=== PATIENT | female | born 1985 | race Caucasian/White ===

== ENCOUNTER → 2016-10-28 | Outpatient (CLI) | payer BC | END | disposition home or self-care (01) | LOC: LABWHC1 17:00 | PROVIDERS: ATTEND Obstetrics & Gynecology | DX: Z34.90 Encounter for supervision of normal pregnancy, unspecified, unspecified trimester (principal) | CPT/HCPCS: 36415; 84702; 86850; 86900; 86901 ==

== ENCOUNTER → 2016-10-30 | Outpatient (CLI) | payer BC ==
--- NOTE | 2016-10-30 13:37 | US ---
EXAMINATION TYPE: US OB <= 14 wk fetus DATE OF EXAM: 10/30/2016 1:06 PM COMPARISON: NONE CLINICAL HISTORY: O46.91 Spotting. One episode of spotting per patient EXAM PERFORMED: Transabdominal (TA) pelvic ultrasound EXAM MEASUREMENTS: GESTATIONAL AGE / DATING Physician Established: not established Dates by LMP: (6 weeks/3 days) EDC: 06/22/2017 Dates by First Scan: this is first ultrasound Dates by Current Scan for: (6 weeks/3 days) EDC: 06/22/2017 MATERNAL ANATOMY Uterus: 9.0 x 5.2 x 7.0 cm Right Ovary: 4.5 x 2.8 x 2.6 cm Left Ovary: 2.5 x 2.7 x 2.0 cm Post CDS / Adnexa: wnl Presence of free fluid: no free fluid GESTATION / SURVEY CRL: 5.9 cm (6 weeks/3 days) Yolk Sac (normal less than 6mm): 0.3 cm Heart Rate: 123 bpm Rhythm: Normal IUP: Viable IUP Date of LMP: 09/15/2016 TECHNOLOGIST IMPRESSION: viable IUP that correlates with LMP Single live intrauterine gestation is present as gestational sac, yolk sac, pole are identified . heart tones are regular measure 123 beats per minute which is within normal limits. No free f luid is seen in pelvic cul-de-sac. Both ovaries are identified. Slightly prominent complex cystic lesion right ovary measuring roughly 3 cm on long axis could reflect corpus luteal cyst. Consider ultrasound follow-up as other etiologies are not excluded. No extraovarian adnexal mass is identified. IMPRESSION: Single live intrauterine gestation is confirmed, mean crown-rump length is 5.9 cm corresponding to 6 week 3 day old fetus.
== END | disposition home or self-care (01) ==
LOC: RADUSWWP 12:48
PROVIDERS: ATTEND Obstetrics & Gynecology
DX: O46.91 Antepartum hemorrhage, unspecified, first trimester (principal); Z3A.01 Less than 8 weeks gestation of pregnancy
CPT/HCPCS: 76801

== ENCOUNTER → 2016-11-12 | Outpatient (CLI) | payer BC ==
[2016-11-12 13:54] LABS: CH 31.2; HDW 2.16; HGB 12.3 gm/dL (11.4-16.0); MCH 30.7 pg (25.0-35.0); MCHC 33.2 g/dL (31.0-37.0); MCV 92.2 fL (80.0-100.0); Mean Platelet Volume 8.1; RBC 4.01 m/uL (3.80-5.40); RDW 12.9 % (11.5-15.5); WBC 11.7 k/uL (3.8-10.6)
[2016-11-12 14:15] LABS: Glucose 78 mg/dL (74-99); Non-African American GFR(MDRD) >60 (>60 ml/min/1.73 sqM)
[2016-11-12 14:46] LABS: Hepatitis B Surface Ag Index 0.06
[2016-11-12 19:05] LABS: Treponemal Ab Non-Reactive (Non-Reactive)
[2016-11-12 20:01] LABS: Hemoglobin A1C 5.5 % (4.2-6.1)
[2016-11-14 05:01] LABS: Toxoplasma Antibody (IgG) <3.0 IU/mL (<7.2)
== END | disposition home or self-care (01) ==
LOC: LABWHC1 13:17
PROVIDERS: ATTEND Obstetrics & Gynecology
DX: Z34.81 Encounter for supervision of other normal pregnancy, first trimester (principal); Z3A.00 Weeks of gestation of pregnancy not specified
CPT/HCPCS: 36415; 82565; 82947; 83036; 84439; 84443; 85027; 86376; 86762; 86777; 86778; 86780; 86850; 86900; 86901; 87340

== ENCOUNTER 2016-12-24 18:55 | Emergency (ER) | payer BC ==
[2016-12-24] MEDS ORDERED: SODIUM CHLORIDE 0.9% 1,000 ML IV ONE (19:46)
[2016-12-24] MEDS ORDERED: diphenhydrAMINE 50 MG/ML 1 ML VIAL IVP STA (19:46)
[2016-12-24] MEDS ORDERED: METOCLOPRAMIDE 5 MG/ML 2 ML VIAL IVP STA (19:47)
--- NOTE | 2016-12-24 19:51 | ED ---
Headache HPI - General Chief Complaint: Headache Stated Complaint: migraine (14 weeks ) Time Seen by Provider: 12/24/16 19:40 Mode of arrival: ambulatory Limitations: no limitations - History of Present Illness Initial Comments: 31-year-old female patient presents to emergency department today with complaints of headache that started yesterday around 4 PM. Patient is also complaining of associated light sensitivity and nausea. Patient states that the headache is frontal and radiates towards the back of her head. Patient does have a history of migraines and states that symptoms are typical of her usual headaches. She did take 1000 mg Tylenol 4 PM today states that her headache has not improved at all. She denies any blurred or double vision. She denies any neck pain, back pain, fever, or chills. She denies any abdominal pain, cramping, vaginal bleeding, discharge, or urinary symptoms. Patient is 14 weeks . - Related Data Home Medications Medication Instructions Recorded Confirmed Acetaminophen Tab [Tylenol Tab] 1,000 mg PO DAILY PRN 12/24/16 12/24/16 Albuterol Sulfate [Proair Hfa] 2 puff INHALATION RT-Q6H PRN 12/24/16 12/24/16 Pnv with Ca,No.72/Iron/FA 1 tab PO DAILY 12/24/16 12/24/16 [ Plus Tablet] Allergies Allergy/AdvReac Type Severity Reaction Status Date / Time Penicillins Allergy Rash/Hives Verified 12/24/16 19:45 Review of Systems ROS Statement: Those systems with pertinent positive or pertinent negative responses have been documented in the HPI. ROS Other: All systems not noted in ROS Statement are negative. Past Medical History Past Medical History: Asthma History of Any Multi-Drug Resistant Organisms: None Reported Past Surgical History: Orthopedic Surgery, Tonsillectomy Past Psychological History: No Psychological Hx Reported Smoking Status: Never smoker Past Alcohol Use History: None Reported Past Drug Use History: None Reported General Exam Limitations: no limitations General appearance: alert, in no apparent distress Eye exam: Present: normal appearance, PERRL, EOMI. Absent: scleral icterus, conjunctival injection, periorbital swelling Pupils: Present: normal accommodation ENT exam: Present: normal exam, normal oropharynx, mucous membranes moist Neck exam: Present: normal inspection, full ROM. Absent: tenderness, meningismus, lymphadenopathy Respiratory exam: Present: normal lung sounds bilaterally. Absent: respiratory distress, wheezes, rales, rhonchi, stridor Cardiovascular Exam: Present: regular rate, normal rhythm, normal heart sounds. Absent: systolic murmur, diastolic murmur, rubs, gallop, clicks GI/Abdominal exam: Present: soft, normal bowel sounds. Absent: distended, tenderness, guarding, rebound, rigid Back exam: Present: normal inspection Neurological exam: Present: alert, oriented X3, CN II-XII intact, other (Good strength all extremities.) Psychiatric exam: Present: normal affect, normal mood Skin exam: Present: warm, dry, intact, normal color. Absent: rash Course Vital Signs 12/24/16 19:00 Temperature 98.2 F Pulse Rate 80 Respiratory 20 Rate Blood Pressure 129/69 O2 Sat by Pulse 98 Oximetry Medical Decision Making - Medical Decision Making 31-year-old female patient who presented to emergency department today for complaints of migraine headache. Patient was given 1 L bolus as well as Benadryl and Reglan while here in the emergency department. Pain has decreased to a 2 out of 10, and she is feeling better. heart tones were performed per patient's request and are within normal limits. Patient will be discharged home with instructions to follow-up with her primary care physician, continue taking Tylenol for any headache. Patient instructed to return for any new, worsening, or concerning symptoms. Disposition Clinical Impression: Headache Disposition: HOME SELF-CARE Condition: Stable Instructions: Acute Headache (ED) Additional Instructions: Increase fluids. Continue using Tylenol for headaches. Follow-up with primary care physician in one to 2 days for recheck. Return for any new, worsening, or concerning symptoms. Referrals: Richard Lemus DO [Primary Care Provider] - 1-2 days Time of Disposition: 21:17
[2016-12-24 21:46] VITALS: BP 128/78; PULSE 84; RESP 17; TEMP 98.1
== END 2016-12-24 21:45 | disposition home or self-care (01) ==
LOC: EC 18:55
DX: O99.89 Other specified diseases and conditions complicating pregnancy, childbirth and the puerperium (principal); R51 Headache; Z3A.14 14 weeks gestation of pregnancy; R11.0 Nausea; Z79.899 Other long term (current) drug therapy; Z88.0 Allergy status to penicillin
CPT/HCPCS: 99283; 96374; 96375; 96361; J1200; J2765

== ENCOUNTER → 2017-03-05 | Outpatient (CLI) | payer BC ==
[2017-03-05 16:29] LABS: CH 32.2; CHCM 33.2; HCT 36.2 % (34.0-46.0); HDW 2.13; HGB 12.7 gm/dL (11.4-16.0); MCH 34.1 pg (25.0-35.0); MCV 97.5 fL (80.0-100.0); Mean Platelet Volume 8.1; RBC 3.71 m/uL (3.80-5.40); RDW 13.3 % (11.5-15.5); WBC 12.7 k/uL (3.8-10.6)
[2017-03-05 16:42] LABS: Uric Acid 2.7 mg/dL (3.7-7.4)
== END | disposition home or self-care (01) ==
LOC: LABWHC1 15:02
PROVIDERS: ATTEND Obstetrics & Gynecology
DX: Z34.82 Encounter for supervision of other normal pregnancy, second trimester (principal); Z3A.00 Weeks of gestation of pregnancy not specified
CPT/HCPCS: 36415; 82950; 83615; 84439; 84443; 84450; 84460; 84520; 84550; 85027

== ENCOUNTER → 2017-03-07 | Outpatient (CLI) | payer BC ==
[2017-03-07 12:32] LABS: Glucose 3 Hour, Gest 102 mg/dL
[2017-03-07 15:34] LABS: Appearance,Urine Cloudy (Clear); Bacteria,Urine Moderate /hpf; Bilirubin,Urine Negative (Negative); Glucose,Urine (UA) Negative (Negative); Ketones,Urine Negative (Negative); Leukocyte Esterase,Urine Trace (Negative); Mucus,Urine Rare /hpf; Nitrite,Urine Negative (Negative); PH, Urine 7.5 (5.0-8.0); Particle Count 8174; Protein,Urine Trace (Negative); RBC,Urine <1 /hpf (0-5); Specific Gravity,Urine 1.014 (1.001-1.035); Squamous Epithelial Cell,Urine 3 /hpf (0-4); UA Billing (MACRO vs. MICRO) MICRO; Urobilinogen,Urine <2.0 mg/dL (<2.0); WBC,Urine 1 /hpf (0-5)
== END | disposition home or self-care (01) ==
LOC: LABWHC1 08:03
PROVIDERS: ATTEND Obstetrics & Gynecology
DX: O99.810 Abnormal glucose complicating pregnancy (principal); Z3A.00 Weeks of gestation of pregnancy not specified
CPT/HCPCS: 36415; 81001; 81050; 82575; 82951; 82952; 84156

== ENCOUNTER → 2017-05-01 | Outpatient (CLI) | payer BC ==
--- NOTE | 2017-05-01 15:12 | US ---
EXAMINATION TYPE: US OB BPP wo non-stress DATE OF EXAM: 05/01/2017 COMPARISON: NONE CLINICAL HISTORY: 31-year-old female o24.419 GDM, e03.9 hypothyroidism. EXAM PERFORMED: biophysical profile, transabdominal scanning. Assessment made by the extrusion die repair manager amado hauser real-time scanning. FINDINGS: BPP PARAMETERS: PRESENTATION: Vertex LIE: Longitudinal?? HEART RATE: 142bpm RHYTHM: Normal ALEX: 20 DIAPHRAGM IMAGED: yes BPP SCORIN. Breathin (1 episode of breathing of 30 second duration in 30 minutes of scanning time) 2. Movement: 2 (at least 2 discrete body movements in 30 minutes) 3. Tone: 2 (1 episode of active flexion/extension of limb) 4. ALEX: 2 (ALEX index > 5cm) IMPRESSION: TOTAL SCORE: 8 / 8
== END ==
LOC: RADUSWWP 13:25
PROVIDERS: ATTEND Obstetrics & Gynecology
DX: O24.419 Gestational diabetes mellitus in pregnancy, unspecified control (principal); O99.280 Endocrine, nutritional and metabolic diseases complicating pregnancy, unspecified trimester; E03.9 Hypothyroidism, unspecified; Z3A.00 Weeks of gestation of pregnancy not specified
CPT/HCPCS: 76819; 84439; 84443; 84481

== ENCOUNTER 2017-05-25 20:37 | Outpatient (CLI) | payer BC ==
[2017-05-25 21:47] VITALS: BP 126/74; PULSE 99; RESP 16; TEMP 97
--- NOTE | 2017-05-26 07:57 | P.MSEPDOC ---
Presenting Problems - Arrival Data Date of Arrival on Unit: 05/25/17 Time of Arrival on Unit: 20:40 Mode of Transport: Ambulatory - Complaint OB-Reason for Admission/Chief Complaint: Possible Onset of Labor Comment: contractions all day, became more painful at 1900 Medical History - Information : 2 Para: 1 Term: 0 : 1 Abortions: Spontaneous or Elective: 0 Number of Living Children: 1 - Gestational Age Expected Date of Delivery: 06/22/17 Gestational Age by GRAHAM (wks/days): 36 Weeks and 1 Days - History Complications: GDM Review of Systems - Review of Systems Constitutional: No problems Breast: No problems ENT: No problems Cardiovascular: No problems Respiratory: No problems Gastrointestinal: No problems Genitourinary: No problems Musculoskeletal: No problems Neurological: No problems Skin: No problems Vital Signs - Temperature Temperature: 97.0 F Temperature Source: Temporal Artery Scan - Pulse Right Sitting Brachial Pulse Rate: 99 Pulse Assessment Method: Automatic Cuff - Respirations Respiratory Rate: 16 Oxygen Delivery Method: Room Air - Blood Pressure Right Arm Sitting Blood Pressure: 126/74 Blood Pressure Mean: 91 Blood Pressure Source: Automatic Cuff Medical Screen Scoring (Pre) - Cervical Exam Dilation: 0 cm = 0 Membranes: Intact - Uterine Contractions Frequency: > or = 36 weeks =2 Duration: > 40 seconds = 2 - Maternal Vital Signs Maternal Temperature: N/A Maternal Blood Pressure: N/A Signs of Preeclampsia: N/A Maternal Respirations: N/A - Maternal Trauma Maternal Trauma: N/A - Assessment Baseline FHR: 140 Heart Rate - NICHD Category: Category I (Normal) = 0 NST: Reactive Station: N/A - Total Score Total Score (Pre): 4 - Level of Risk Level of Risk: Low (0-5) Physician Notification (Pre) - Physician Notified Physician Notified Date: 05/25/17 Physician Notified Time: 22:19 Physician/Practitioner Notifed:: kimmy Spoke With: kimmy New Order Received: Yes - Notification Comment Comment: pt to be discharged home. Disposition - Disposition OB Disposition: Discharge to home Discharge Date: 05/25/17 Discharge Time: 22:22 I agree with the RN Medical Screening Exam: Yes Risk & Benefit of care provided described in d/c instruction: Yes Diagnosis: FALSE LABOR BEFORE 37 COMPLETED WEEKS OF GEST, THIRD TRI
== END 2017-05-25 22:22 | disposition home or self-care (01) ==
LOC: FBPOP 20:37
PROVIDERS: ATTEND Obstetrics & Gynecology
DX: O47.03 False labor before 37 completed weeks of gestation, third trimester (principal); Z3A.36 36 weeks gestation of pregnancy
CPT/HCPCS: 59025; 84112; 99213

== ENCOUNTER 2017-05-26 21:00 | Inpatient (IN) | payer BC ==
[2017-05-26 21:34] LABS: Glucose,Whole Blood 172 mg/dL (75-99)
[2017-05-26] MEDS ORDERED: METHYLERGONOVINE 0.2 MG/ML 1 ML AMP IM PRN (21:52)
[2017-05-26] MEDS ORDERED: TERBUTALINE 1 MG/ML VIAL SQ PRN (21:52)
[2017-05-26] MEDS ORDERED: OXYTOCIN 10 UNIT/ML 1 ML VIAL IM PRN (21:52)
[2017-05-26] MEDS ORDERED: LIDOCAINE 1% (PF) 10 MG/ML (30 ML SDV) SQ PRN (21:52)
[2017-05-26] MEDS ORDERED: CARBOPROST TROMETHAMINE 250 MCG/ML 1 ML AMP IM PRN (21:52)
[2017-05-26] MEDS ORDERED: INSULIN REGULAR 100 UNIT/ML VIAL SQ ONE (21:58)
[2017-05-26] MEDS: LACTATED RINGERS 1,000 ML IV SCH (22:28)
[2017-05-26 22:36] LABS: Basophils % (A) 0 %; CH 31.9; CHCM 34.7; Eosinophils # (A) 0.1 k/uL (0-0.7); Eosinophils % (A) 1 %; HCT 36.3 % (34.0-46.0); HDW 2.45; HGB 12.8 gm/dL (11.4-16.0); Luc % (Auto) 1; Lymphocytes # (A) 1.4 k/uL (1.0-4.8); Lymphocytes % (A) 11 %; MCH 32.5 pg (25.0-35.0); MCHC 35.2 g/dL (31.0-37.0); MCV 92.3 fL (80.0-100.0); Mean Platelet Volume 8.4; Monocytes # (A) 0.5 k/uL (0-1.0); Monocytes % (A) 4 %; Neutrophils # (A) 10.6 k/uL (1.3-7.7); Neutrophils % (A) 83 %; RBC 3.94 m/uL (3.80-5.40); RDW 13.4 % (11.5-15.5); WBC 12.8 k/uL (3.8-10.6); WBC (Perox) 13.01
[2017-05-26 22:43] VITALS: BMI 28.0
[2017-05-26 23:25] LABS: Glucose,Whole Blood 122 mg/dL (75-99)
[2017-05-26] MEDS ORDERED: OXYTOCIN 20 UNITS/1000 ML NS 1,000 ML IV SCH (23:30)
[2017-05-26 23:46] LABS: Hemoglobin A1C 6.2 % (4.2-6.1)
--- NOTE | 2017-05-27 00:15 | US ---
EXAM: US Uterus, Limited CLINICAL HISTORY: Reason: position TECHNIQUE: Real-time ultrasound of the maternal uterus (limited) with image documentation. COMPARISON: 05/01/2017. FINDINGS: Fetus: lie is longitudinal. Position: Vertex presentation. Heart rate: Heart rate of 157 bpm with normal rhythm. IMPRESSION: As above.
[2017-05-27 00:47] LABS: Glucose,Whole Blood 101 mg/dL (75-99)
[2017-05-27] MEDS: BUTORPHANOL 1 MG/ML 1 ML VIAL IV PRN ×2 (01:26→04:08)
[2017-05-27 01:44] LABS: Glucose,Whole Blood 105 mg/dL (75-99)
[2017-05-27 02:40] LABS: Glucose,Whole Blood 109 mg/dL (75-99)
[2017-05-27 03:39] LABS: Glucose,Whole Blood 112 mg/dL (75-99)
[2017-05-27 04:33] LABS: Glucose,Whole Blood 121 mg/dL (75-99)
[2017-05-27] MEDS: LACTATED RINGERS 1,000 ML IV SCH ×4 (06:11→19:57)
[2017-05-27] MEDS ORDERED: PROPOFOL 10 MG/ML 20 ML VIAL IV ONE (06:43)
[2017-05-27] MEDS ORDERED: OXYTOCIN 10 UNIT/ML 1 ML VIAL ONE (06:43)
[2017-05-27] MEDS ORDERED: SUCCINYLCHOLINE CHLORIDE 100 MG/5 ML SYR IV ONE (06:43)
[2017-05-27] MEDS ORDERED: HYDROmorphone (PF) 1 MG/ML ONE (06:43)
[2017-05-27] MEDS ORDERED: fentaNYL (PF) 50 MCG/ML 2 ML AMP ONE (06:43)
[2017-05-27] MEDS ORDERED: CLINDAMYCIN 150 MG/ML 4 ML VIAL ONE (06:43)
[2017-05-27] MEDS ORDERED: LACTATED RINGERS 1,000 ML BAG IV ONE (06:43)
[2017-05-27] MEDS ORDERED: ONDANSETRON 4 MG/2 ML VIAL ONE (06:43)
[2017-05-27] MEDS ORDERED: ONDANSETRON 4 MG/2 ML VIAL IVP PRN (07:31)
[2017-05-27] MEDS ORDERED: ACETAMINOPHEN TAB 325 MG TAB PO PRN (07:31)
[2017-05-27] MEDS ORDERED: diphenhydrAMINE 25 MG CAP PO PRN (07:31)
[2017-05-27] MEDS ORDERED: ZOLPIDEM 5 MG TAB PO PRN (07:31)
[2017-05-27] MEDS ORDERED: NALOXONE 0.4 MG/ML 1 ML VIAL IV PRN (07:31)
[2017-05-27] MEDS ORDERED: diphenhydrAMINE 50 MG CAP PO PRN (07:31)
[2017-05-27] MEDS ORDERED: diphenhydrAMINE 50 MG/ML 1 ML VIAL IVP PRN ×2 (07:31)
[2017-05-27] MEDS ORDERED: LANOLIN CREAM 5 GM TUBE TOPICAL PRN (07:31)
[2017-05-27] MEDS ORDERED: METOCLOPRAMIDE 5 MG/ML 2 ML VIAL IVP PRN (07:31)
[2017-05-27] MEDS ORDERED: OXYTOCIN 20 UNITS/1000 ML NS 1,000 ML IV SCH (07:45)
[2017-05-27] MEDS: HYDROmorphone PCA 5 MG/25 ML SYRINGE IV PRN ×3 (07:54→20:35)
--- NOTE | 2017-05-27 11:27 | P.HPOB ---
History of Present Illness H&P Date: 05/27/17 Chief Complaint: SROM 32 year old at 36 weeks at 2 days presents with spontaneous rupture of membranes at 1999 on 05-26-17. Her cervix is 1 cm dilated, thick, -3 station. She is renée irregularly about every 5-10 minutes. heart tones are 140-145 with moderate variability and reactive. Blood sugar on admission is 172. She says that she ran out of test strips and has not been taking her insulin today; did have a very large dinner. Review of Systems All systems: negative Constitutional: Denies chills, Denies fever Eyes: denies blurred vision, denies pain Ears, nose, mouth and throat: Denies headache, Denies sore throat Cardiovascular: Denies chest pain, Denies shortness of breath Respiratory: Denies cough Gastrointestinal: Denies abdominal pain, Denies diarrhea, Denies nausea, Denies vomiting Genitourinary: Denies dysuria, Denies hematuria Musculoskeletal: Denies myalgias Integumentary: Denies pruritus, Denies rash Neurological: Denies numbness, Denies weakness Psychiatric: Denies anxiety, Denies depression Endocrine: Denies fatigue, Denies weight change Past Medical History Past Medical History: Asthma Additional Past Medical History / Comment(s): Obstetric history: First she delivered at 33 weeks vaginal delivery. She was induced for severe preeclampsia. This is her second she does have gestational diabetes and is on insulin. She has not had very good control throughout the entire . Blood type is A+, rubella immune, RPR NR, hepatitis B-, GBS negative. History of Any Multi-Drug Resistant Organisms: None Reported Past Surgical History: Orthopedic Surgery, Tonsillectomy Additional Past Surgical History / Comment(s): Left rotator cuff repair Past Anesthesia/Blood Transfusion Reactions: No Reported Reaction Past Psychological History: No Psychological Hx Reported Smoking Status: Never smoker Past Alcohol Use History: None Reported Past Drug Use History: None Reported - Past Family History Mother Family Medical History: Hypertension, Thyroid Disorder Additional Family Medical History / Comment(s): Lupus Medications and Allergies Home Medications Medication Instructions Recorded Confirmed Type Pnv,Calcium 72/Iron/Folic Acid 1 tab PO DAILY 12/24/16 05/26/17 History [ Plus Tablet] Aspirin [Children's Aspirin] 1 tab PO DAILY 05/25/17 05/26/17 History Insulin Aspart [NovoLOG] 12 units SQ QAM 05/25/17 05/26/17 History Insulin Regular, Human [NovoLIN R] 4 units SQ AC-LUNCH 05/25/17 05/26/17 History Allergies Allergy/AdvReac Type Severity Reaction Status Date / Time Penicillins Allergy Rash/Hives Verified 05/25/17 21:17 Exam Osteopathic Statement: *. No significant issues noted on an osteopathic structural exam other than those noted in the History and Physical/Consult. - Vital Signs Vital signs: Vital Signs Temp Pulse Resp BP Pulse Ox 05/27/17 09:33 94 18 104/58 05/27/17 09:03 98 F 104 H 18 109/60 99 05/27/17 08:33 92 18 107/62 05/27/17 08:18 91 18 108/62 05/27/17 08:03 112 H 16 100/59 100 05/27/17 08:00 94 16 100/59 05/27/17 07:48 88 16 106/62 05/27/17 07:33 97.4 F L 107 H 16 105/55 05/26/17 21:42 97.5 F L 108 H 17 131/78 98 05/26/17 21:34 97.1 F L 109 H 17 130/80 96 Intake and Output 05/26/17 05/27/17 05/27/17 22:59 06:59 14:59 Intake Total 0 Balance 0 Intake: Oral 0 Other: # Voids 2 1 Weight 71.668 kg Heart: Regular rate and rhythm Lungs: Clear to auscultation bilaterally Abdomen: Soft, nontender Extremities: Negative Homans sign Results Result Diagrams: 05/26/17 22:25 Abnormal Lab Results - Last 24 Hours (Table) 05/26/17 05/26/17 05/26/17 Range/Units 21:24 22:25 22:25 WBC 12.8 H (3.8-10.6) k/uL Neutrophils # 10.6 H (1.3-7.7) k/uL POC Glucose (mg/dL) 172 H (75-99) mg/dL Hemoglobin A1c 6.2 H (4.2-6.1) % 05/26/17 05/27/17 05/27/17 Range/Units 23:14 00:35 01:33 WBC (3.8-10.6) k/uL Neutrophils # (1.3-7.7) k/uL POC Glucose (mg/dL) 122 H 101 H 105 H (75-99) mg/dL Hemoglobin A1c (4.2-6.1) % 05/27/17 05/27/17 05/27/17 Range/Units 02:24 03:27 04:31 WBC (3.8-10.6) k/uL Neutrophils # (1.3-7.7) k/uL POC Glucose (mg/dL) 109 H 112 H 121 H (75-99) mg/dL Hemoglobin A1c (4.2-6.1) % Assessment and Plan (1) Spontaneous rupture of membranes Status: Acute (2) Gestational diabetes mellitus, class A2 Status: Acute Plan: 1. Admit to family place 2. Will give her 4 units of Humulin to bring the blood sugar down now and then check her blood sugar every hour now. 3. Pitocin augmentation
--- NOTE | 2017-05-27 11:34 | P.OP ---
Date of Procedure: 05/27/17 Preoperative Diagnosis: 1. at 36 weeks and 2 days 2. Gestational diabetes A2 3. Nonreassuring heart tones Postoperative Diagnosis: 1. at 36 weeks and 2 days 2. Gestational diabetes A2 3. Nonreassuring heart tones 4. Placental abruption Procedure(s) Performed: Primary low transverse Implants: Anesthesia: OLEGARIO Surgeon: Irina Gtz Community Development Officer #1: Wilbur Rollins Estimated Blood Loss (ml): 600 IV fluids (ml): 500 Urine output (ml): 200 Pathology: other (Placenta) Condition: stable Disposition: floor Indications for Procedure: 32-year-old presented at 36 weeks and 2 days with spontaneous rupture of membranes. Her cervix was 1 cm dilated thick and -3 station. She is renée irregularly. heart tones were 140-145 with moderate variability and reactive. Her blood sugar was 172 at the time of admission but after 4 units of Humulin her blood sugar did come down to under 120. Her blood sugar remained between 100- 122 throughout the rest of her labor. Pitocin augmentation was started. The patient was renée every few minutes and her cervix was 3 cm dilated she did want epidural. When she was present for this the heart tones decelerated into the 60s. Intra-Uterine resuscitation was unsuccessful and section was called. Informed consent was obtained. Operative Findings: Viable female, Apgars 2 at 1 minute, 5 at 5 minutes, 8 at 10 minutes. Weight 6 lbs. 4 oz. evidence of placental abruption Description of Procedure: Patient was taken to the operating room where general anesthesia was found be adequate. She was prepped and draped in normal sterile fashion in dorsal supine position with a leftward tilt. Pfannenstiel skin incision was made the scalpel and carried through to the underlying layer of fascia with the scalpel. Fascia was incised in midline and carried bilaterally with the Su scissors. The superior aspect of the fascial incision was grasped with [place] clamps elevated and the underlying rectus muscles dissected off with the Su's. Attention was then turned to inferior aspect of same incision which in a similar fashion was grasped tented up and the underlying rectus muscles dissected off with the Su's. The rectus muscles were the midline and the peritoneum was identified tented up and entered in a digital manner. The incision was extended superiorly and inferiorly with good visualization of the bladder. The bladder blade was inserted and the vesicouterine peritoneum was incised the [place]zen[place] then carried bilaterally and bladder flap created digitally. A low transverse incision was then made on the uterus with the scalpel. This was carried bilaterally and digital manner. 's head delivered atraumatically, nose and mouth bulb suctioned, cord clamped and cut, handed off to waiting nurses. Apgars 2 at one minute,5 at five minutes and 8 at ten minutes, weight 6 lbs. 4 oz. Placenta delivered manually, intact with three-vessel cord, several clots noted. The uterus is exteriorized and cleared of all clots and debris. The uterine incision was closed with 0 Vicryl in a running locked fashion. Second layer of the same sutures used in imbricating fashion to obtain excellent hemostasis. Bladder flap was then reapproximated using 2-0 Vicryl in a running fashion. Both ovaries and tubes appeared normal. The uterus was placed back into the abdomen. The peritoneum was reapproximated using 2-0 Vicryl in a running fashion. The muscles were reapproximated using 2-0 Vicryl in interrupted fashion. The fascia was reapproximated using 0 Vicryl in a running fashion. The subcutaneous tissues closed with 3-0 Vicryl running fashion. The skin was closed yu. Patient tolerated the procedure well, sponge and instrument counts were correct times 2 and she was taken to the recovery room in stable condition.
[2017-05-27] MEDS: SENNOSIDES-DOCUSATE SODIUM 1 EACH TAB PO SCH ×2 (14:34→20:49)
[2017-05-27] MEDS: KETOROLAC 30 MG/ML 1 ML VIAL IVP PRN ×2 (15:13→21:32)
[2017-05-28] MEDS: LACTATED RINGERS 1,000 ML IV SCH ×2 (00:05)
[2017-05-28] MEDS: KETOROLAC 30 MG/ML 1 ML VIAL IVP PRN (04:05)
[2017-05-28] MEDS ORDERED: Acetaminophen-Codeine 300-30mg TAB PO PRN (07:40)
[2017-05-28 07:57] LABS: Basophils % (A) 1 %; CH 31.4; CHCM 33.6; Eosinophils # (A) 0.1 k/uL (0-0.7); Eosinophils % (A) 2 %; HCT 29.6 % (34.0-46.0); Luc # (Auto) 0.07; Luc % (Auto) 1; Lymphocytes # (A) 1.3 k/uL (1.0-4.8); Lymphocytes % (A) 23 %; MCH 31.7 pg (25.0-35.0); MCHC 33.8 g/dL (31.0-37.0); MCV 93.9 fL (80.0-100.0); Monocytes # (A) 0.4 k/uL (0-1.0); Monocytes % (A) 7 %; Neutrophils # (A) 3.8 k/uL (1.3-7.7); Neutrophils % (A) 66 %; RBC 3.15 m/uL (3.80-5.40); RDW 13.6 % (11.5-15.5); WBC 5.7 k/uL (3.8-10.6); WBC (Perox) 6.09
[2017-05-28] MEDS: Acetaminophen-Codeine 300-30mg TAB PO PRN ×3 (08:15→20:11)
[2017-05-28] MEDS: SENNOSIDES-DOCUSATE SODIUM 1 EACH TAB PO SCH ×2 (08:15→20:11)
[2017-05-28] MEDS: IBUPROFEN 600 MG TAB PO PRN ×2 (12:06→19:00)
--- NOTE | 2017-05-28 12:54 | P.MSEPDOC ---
Presenting Problems - Arrival Data Date of Arrival on Unit: 05/26/17 Time of Arrival on Unit: 21:00 Mode of Transport: Portable - Complaint OB-Reason for Admission/Chief Complaint: Possible Onset of Labor, Rule Out PROM Medical History - Information : 2 Para: 1 Term: 0 : 1 Abortions: Spontaneous or Elective: 0 Number of Living Children: 1 - Gestational Age Expected Date of Delivery: 06/22/17 Gestational Age by GRAHAM (wks/days): 36 Weeks and 3 Days - History Complications: GDM, Prior Comment: Prior induction for severe pre-eclampsia Review of Systems - Review of Systems Constitutional: No problems Breast: No problems ENT: No problems Cardiovascular: No problems Respiratory: No problems Gastrointestinal: No problems Genitourinary: No problems Musculoskeletal: No problems Neurological: No problems Skin: No problems Vital Signs - Temperature Temperature: 97.8 F Temperature Source: Oral - Pulse Pulse Oximetery Pulse Rate: 101 Pulse Assessment Method: Automatic Cuff - Respirations Respiratory Rate: 18 Oxygen Delivery Method: Room Air - Blood Pressure Right Arm Blood Pressure: 99/61 Blood Pressure Mean: 73 Blood Pressure Source: Automatic Cuff - Comment Vital Signs Comment: Patient sleepy Medical Screen Scoring (Pre) - Cervical Exam Dilation: 1-3 cm = 1 Effacement: More than 50% = 2 Membranes: Ruptured = 3 - Uterine Contractions Frequency: > 5 minutes apart = 1 Duration: > 40 seconds = 2 Intensity: N/A - Maternal Vital Signs Maternal Temperature: N/A Maternal Blood Pressure: N/A Signs of Preeclampsia: N/A Maternal Respirations: N/A - Maternal Trauma Maternal Trauma: N/A - Assessment Baseline FHR: 150 Heart Rate - NICHD Category: Category I (Normal) = 0 NST: Reactive Position: N/A Station: N/A - Total Score Total Score (Pre): 9 - Level of Risk Level of Risk: Medium (6-9) Physician Notification (Pre) - Physician Notified Physician Notified Date: 05/26/17 Physician Notified Time: 21:34 Physician/Practitioner Notifed:: Ulisses Spoke With: Ulisses New Order Received: Yes (see below) - Notification Comment Comment: Orders Received: Admission to L&D. 4 units Novolin stat. Pitocin. Stadol 1mg q2h prn pain. Ultrasound for position verification. Notify physician if blood glucose <60 or >120. Collect A1C Disposition - Disposition OB Disposition: Admit I agree with the RN Medical Screening Exam: Yes Risk & Benefit of care provided described in d/c instruction: Yes Diagnosis: ENCOUNTER FOR FULL-TERM UNCOMPLICATED DELIVERY
[2017-05-29] MEDS: IBUPROFEN 600 MG TAB PO PRN ×3 (02:53→17:49)
[2017-05-29] MEDS: SENNOSIDES-DOCUSATE SODIUM 1 EACH TAB PO SCH ×2 (07:46→21:11)
[2017-05-29] MEDS: Acetaminophen-Codeine 300-30mg TAB PO PRN ×3 (07:48→21:11)
--- NOTE | 2017-05-29 11:06 | P.PNOBGPC ---
Subjective - Subjective Principal diagnosis: post Operative day 2 Interval history: Very well. Vital signs are stable and afebrile. Patient reports: Reports appetite normal, Reports voiding normally, Reports pain well controlled, Reports ambulating normally [place]: in NICU Objective - Vital Signs Latest vital signs: Vital Signs Temp Pulse Resp BP Pulse Ox 05/29/17 08:00 98.4 F 84 16 120/70 05/29/17 00:00 98.7 F 103 H 18 109/51 97 05/28/17 16:00 98.1 F 109 H 20 103/56 98 05/28/17 12:54 97.8 F 101 H 18 99/61 05/28/17 12:00 97.8 F 101 H 18 99/61 - Exam Lungs: bilateral: normal Chest: Normal S1, Normal S2 Extremities: Present: normal Abdomen: Present: normal appearance, soft. Absent: distention, tenderness Incision: Present: normal, dry, intact Uterus: Present: normal, firm
[2017-05-30] MEDS: IBUPROFEN 600 MG TAB PO PRN ×4 (02:32→22:23)
[2017-05-30] MEDS: Acetaminophen-Codeine 300-30mg TAB PO PRN ×3 (07:37→17:58)
--- NOTE | 2017-05-30 08:26 | P.PNOBGPC ---
Subjective - Subjective Principal diagnosis: Postop day 3 Interval history: Radha continues to do very well postop day 3. She voices no complaints. Her vital signs are stable and she is afebrile. Patient reports: Reports appetite normal, Reports voiding normally, Reports pain well controlled, Reports ambulating normally [place]: in NICU Objective - Vital Signs Latest vital signs: Vital Signs Temp Pulse Resp BP Pulse Ox 05/30/17 07:51 98.2 F 74 18 111/79 100 05/30/17 00:00 98.6 F 62 16 118/73 05/29/17 16:00 97.9 F 98 16 103/62 - Exam Lungs: bilateral: normal Chest: Normal S1, Normal S2 Extremities: Present: normal Abdomen: Present: normal appearance, soft. Absent: distention, tenderness Incision: Present: normal, dry, intact Uterus: Present: normal, firm
[2017-05-30] MEDS: SENNOSIDES-DOCUSATE SODIUM 1 EACH TAB PO SCH ×2 (09:56→19:56)
[2017-05-31] MEDS: Acetaminophen-Codeine 300-30mg TAB PO PRN (04:29)
[2017-05-31] MEDS: IBUPROFEN 600 MG TAB PO PRN (07:58)
[2017-05-31] MEDS: SENNOSIDES-DOCUSATE SODIUM 1 EACH TAB PO SCH (07:58)
[2017-05-31 08:11] VITALS: BP 117/87; PULSE 80; RESP 18; TEMP 98.6
--- NOTE | 2017-05-31 10:11 | P.DS ---
Providers Date of admission: 05/26/17 21:24 Expected date of discharge: 05/31/17 Attending physician: Dallas Fairchild [facility] Course: Radha is doing very well postop day 4. She is involuting, voiding, and she is tolerating her diet. She voices no placed. Vital signs are stable and afebrile. Heart regular, lungs clear, extremities without pain. Her abdomen is soft uterus firm incision is clean dry and intact. We'll plan to remove yu today. Prescription for pain medications been provided as has a prescription for breast pump. All other questions are answered for her at this time and she is stable for discharge at this time. Patient Condition at Discharge: Good Plan - Discharge Summary New Discharge Prescriptions: New Acetaminophen-Codeine 300-30mg [Tylenol #3] 1 tab PO Q4H PRN #30 tablet PRN Reason: Pain Ibuprofen [Motrin] 600 mg PO Q6HR PRN #30 tab PRN Reason: Pain No Action Pnv,Calcium 72/Iron/Folic Acid [ Plus Tablet] 1 tab PO DAILY Aspirin [Children's Aspirin] 1 tab PO DAILY Insulin Aspart [NovoLOG] 12 units SQ QAM Insulin Regular, Human [NovoLIN R] 4 units SQ AC-LUNCH Discharge Medication List Pnv,Calcium 72/Iron/Folic Acid [ Plus Tablet] 1 tab PO DAILY 12/24/16 [ History] Aspirin [Children's Aspirin] 1 tab PO DAILY 05/25/17 [History] Insulin Aspart [NovoLOG] 12 units SQ QAM 05/25/17 [History] Insulin Regular, Human [NovoLIN R] 4 units SQ AC-LUNCH 05/25/17 [History] Acetaminophen-Codeine 300-30mg [Tylenol #3] 1 tab PO Q4H PRN #30 tablet [Rx] Ibuprofen [Motrin] 600 mg PO Q6HR PRN #30 tab 05/31/17 [Rx] Follow up Appointment(s)/Referral(s): Dallas Fairchild DO [Doctor of Osteopathic Medicine] - 1 Week Activity/Diet/Wound Care/Special Instructions: No heavy lifting, limit stairs and driving, and pelvic rest. If any high temperatures, heavy bleeding, or severe pain call my office Discharge Disposition: HOME SELF-CARE
== END 2017-05-31 11:36 | disposition home or self-care (01) | DRG 765 ==
LOC: FBPOP 21:00 → 4FBP 21:24
PROVIDERS: ADMIT Obstetrics & Gynecology; ATTEND Obstetrics & Gynecology
PROC: 10D00Z1 Extraction of Products of Conception, Low, Open Approach (ICD-10-PCS; principal; 2017-05-27 06:54)
DX: O42.013 Preterm premature rupture of membranes, onset of labor within 24 hours of rupture, third trimester (principal); O45.93 Premature separation of placenta, unspecified, third trimester; O24.424 Gestational diabetes mellitus in childbirth, insulin controlled; Z37.0 Single live birth; Z3A.36 36 weeks gestation of pregnancy; O76 Abnormality in fetal heart rate and rhythm complicating labor and delivery; O99.52 Diseases of the respiratory system complicating childbirth; J45.909 Unspecified asthma, uncomplicated; Z79.82 Long term (current) use of aspirin; Z79.4 Long term (current) use of insulin; Z79.899 Other long term (current) drug therapy; Z88.0 Allergy status to penicillin
CPT/HCPCS: 59025; 76815; 83036; 85025; 88307; 99213